=== PATIENT | male | born 1990 | race Caucasian/White ===

== ENCOUNTER 2025-02-25 22:38 | Emergency (ER) | payer MEDICAID, SELFPAY ==
[2025-02-25 22:38] VITALS: BP 132/82; PULSE 63; RESP 16; TEMP 36.7; O2SAT 98; BMI 27.3
--- OUTSIDE RECORDS SUMMARY | 2025-02-25 22:44 | XMS_ITS | Patient Health Record ---
Author Organization [facility] Address [address] [place] [facility] 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 He should continue to work on his range of motion. He should refrain from heavy weightlifti ng. I will see him back in 1 month with new xrays., Plan Of Treatment No Information Medical (General) History Surgical History Surgery Date(Month/Year) UNNKOWCharles, ProblemStatus: Active,
--- NOTE | 2025-02-25 22:47 | XRR_ITS ---
PROCEDURE INFORMATION: Exam: XR Right Hand Exam date and time: 02/25/2025 11:00 PM Age: 34 years old Clinical indication: Right; Prior surgery; Surgery date: 6+ months; Surgery type: Metacarpal fixation; C/O RT hand pain with minor swelling to posterior aspect of metacarpal area. TECHNIQUE: Imaging protocol: Radiologic exam of the right hand. Views: 3 or more views. COMPARISON: No relevant prior studies available. FINDINGS: Bones/joints: Postsurgical changes of the 3rd metacarpal . Soft tissues: Normal. XR/XR hand RT min 3V* [id number] IMPRESSION: No definite acute fracture, subluxation, dislocation.
--- NOTE | 2025-02-25 23:36 | ED_ITS ---
HPI - Extremity Problem General: Chief complaint: Extremity Injury, Upper Stated complaint: right hand injury Time Seen by Provider: 02/25/25 22:47 History of Present Illness: Patient is a 34-year-old male with no past medical history who presents to the ED after his dog landed on his right hand near his thumb region and had a moderate amount of pain that has been persistent, taken no medications [employer]. No prior orthopedic injuries to right upper extremity. Denies any sensory or motor deficits. Related Data Previous Rx's ?Medication ?Instructions ?Recorded cyclobenzaprine 10 mg tablet 10 mg PO TID PRN muscle s pasm #20 02/25/25 tabs Allergies Allergy/AdvReac Type Severity Reaction Status Date / Time No Known Allergies Allergy Verified 02/25/25 22:43 Review of Systems General: Reports: 10 or more systems reviewed and unremarkable except in HPI and below Musc: Reports: extremity pain Physical Exam Narrative: EXAM NARRATIVE: Patient well-appearing, vital stable on arrival, afebrile, no acute distress. Right upper extremity with no obvious deformities, right wrist with full range of motion, no swelling and no tenderness, some point tenderness to right snuffbox region, no obvious deformities, no erythema, slight bruising, median, ulnar and radial nerves intact, compartments soft, full range of motion of all digits. 2+ radial pulse. Slight bruising and swelling to thenar eminence as well. No tenderness and full range of motion at right elbow and shoulder joint. Course Vital Signs: Vital signs: Vital Signs Temperature 98.0 F 02/25/25 22:38 Pulse Rate 63 02/25/25 22:38 Respiratory Rate 16 02/25/25 22:38 Blood Pressure 132/82 02/25/25 22:38 Pulse Oximetry 98 02/25/25 22:38 Oxygen Delivery Me thod Room Air 02/25/25 22:38 MDM - Extremity (Nontraumatic) Medical Decision Making -ddx: Carpal fracture, dislocation, soft tissue injury, strain, bony contusion - Mild mechanism of injury, has a small amount of swelling and bruising to his thenar eminence, but full range of motion of all digits, wrist and joints of right upper extremity, neurovasc intact, compartment soft. Some point tenderness to snuffbox region. X-ray negative for any obvious fracture or dislocation but will clinically treat as a scaphoid fracture, removable wrist brace given to patient, given and prescribed Flexeril and advised to follow-up with orthopedics in 2 weeks for repeat x-rays at that time, supportive care recommendations given as well, discharged in stable condition with at bedside. Lab Data Radiology Impressions Hand X-Ray 02/25/25 22:47 IMPRESSION: No definite acute fracture, subluxation, dislocation. All radiology interpretation(s) finalized by discharge Discharge Plan Discharge Patient Disposition: Home Clinical Impression: Scaphoid fracture Condition: Stable Prescriptions: New cyclobenzaprine 10 mg tablet 10 mg PO TID PRN (Reason: muscle spasm) Qty: 20 0RF Discharge Orders: Discharge ED (Routine); Ordered 02/25/25 Ordered By: Kyle Ann Referrals: lee hughes [Other] Patient Instructions: Opioid Safety, Pain Management, Patient Portal & Anuj Instructions Activity Restrictions/Additional Instructions: You were seen after your hand injury, you were evaluated with an x-ray which found no fracture or dislocation at this time but because of the region of your pain, you might have a small fracture that does not show up at first of one of your wrist bones called your scaphoid. The treatment for this will be a wrist brace that is removable and to wear when you are doing activity but do not need to wear it at night. To help with the swelling, use ice packs 20 minutes at a time. For the pain alternate ibuprofen 40 mg and Tylenol 650 mg every 4 hours as needed. Call the orthopedics clinic listed above in a few days to make a repeat appointment in about 2 weeks time for repeat x-rays to reevaluate this injury. Return to the ED with severe worsening of the pain or swelling, inabili ty to feel or move your hand, any other emergent concerns. Print Language: Portuguese Coding Level of Care Code ED Cytopathologist for Hedy Rodgers
== END 2025-02-25 23:56 | disposition home or self-care (01) ==
PROVIDERS: Emergency Provider Student in an Organized Health Care Education/Training Program
DX: S62.001A Unspecified fracture of navicular [scaphoid] bone of right wrist, initial encounter for closed fracture (principal); W54.1XXA Struck by dog, initial encounter
CPT/HCPCS: 73130; 99283; J9999